=== PATIENT | male | born 1955 | race Caucasian/White ===

== ENCOUNTER 2017-09-24 14:50 | Emergency (ER) | payer OTHER ==
[~2017-09-24] VITALS: Wt 68.0 kg
[2017-09-24] VITALS (16 sets, daily range): BP systolic 94–193; BP diastolic 63–92
[2017-09-24] MEDS ORDERED: BREO ELLIPTA 21 EACH INH (14:58)
[2017-09-24] MEDS ORDERED: STIOLTO RESPIMAT4 GM INH (14:59)
[2017-09-24 15:19] LABS: BASO % 0.7 % (0.0-1.0); EOS % 0.2 % (1.0-4.0); HEMATOCRIT 43.4 % (42.0-52.0); HEMOGLOBIN 14.5 g/dl (14.0-18.0); LYMPH # 0.8 10*3/uL (1.3-4.4); LYMPH % 13.2 % (27.0-41.0); MEAN CELL VOLUME 91.4 fl (80.0-94.0); MEAN CORPUSCULAR HGB 30.5 pg (27.0-31.0); MEAN CORPUSCULAR HGB CONC 33.4 g/dl (33.0-37.0); MEAN PLATELET VOLUME 9.4 fl (9.6-12.3); MONO # 0.7 10*3/uL (0.1-1.0); MONO % 11.7 % (3.0-9.0); NEUT # 4.5 10*3/uL (2.3-7.9); NEUT % 73.9 % (47.0-73.0); PLATELET COUNT AUTOMATED 160 10*3/uL (130-400); RED BLOOD COUNT 4.75 10*6/uL (4.50-5.90); RED CELL DISTRI WIDTH 12.3 % (0-14.5); WHITE BLOOD COUNT 6.1 10*3/uL (4.8-10.8)
[2017-09-24 15:29] LABS: ACT PARTIAL THROMBO TIME 23.6 SECONDS (20.8-31.5)
[2017-09-24 15:38] LABS: ALKALINE PHOSPHATASE 51 U/L (45-117); BUN 7 mg/dl (7-24); CHLORIDE 105 mmol/L (98-107); CREATININE 1.07 mg/dL (0.70-1.30); LIPASE 234 U/L (73-393); POTASSIUM 4.3 mmol/L (3.5-5.1); SGOT/AST 24 IU/L (3-35); SGPT/ALT 35 U/L (12-78); SODIUM 138 mmol/L (136-145); TOTAL PROTEIN 7.1 gm/dL (6.4-8.2)
[2017-09-24 15:45] LABS: TROPONIN I < 0.015 ng/ml (<0.045)
[2017-09-24 17:24] LABS: ABG HCO3 16.6 mmol/l (22-26); ABG O2 SATURATION 98.2 % (95-97)
[2017-09-24 17:29] LABS: ABG BASE EXCESS -21.5 mmol/L (-2.0-2.0)
[2017-09-24 17:34] LABS: ARTERIAL BLOOD GAS PH 6.842 (7.35-7.45)
[2017-09-24 19:02] LABS: ABG BASE EXCESS -5.7 mmol/L (-2.0-2.0); ABG HCO3 22.8 mmol/l (22-26); ARTERIAL BLOOD GAS PCO2 58.8 mmHg (35-45); ARTERIAL BLOOD GAS PH 7.21 (7.35-7.45); ARTERIAL BLOOD GAS PO2 79.9 mmHg (80-90)
== END 2017-09-25 00:37 | disposition short-term general hospital (02) ==
LOC: ED 14:50 → EDHOLD 16:05 → ICCU 16:05 → EDHOLD 16:22 → 5E 16:22 → EDHOLD 17:06 → ICCU 17:46 → ED 09-25 00:37
PROVIDERS: Emergency Medicine
DX: A41.9 Sepsis, unspecified organism (principal); J44.1 Chronic obstructive pulmonary disease with (acute) exacerbation; J18.9 Pneumonia, unspecified organism; J96.00 Acute respiratory failure, unspecified whether with hypoxia or hypercapnia; F17.200 Nicotine dependence, unspecified, uncomplicated; Z79.899 Other long term (current) drug therapy

== ENCOUNTER → 2018-04-21 | Outpatient (CLI) | payer OTHER ==
[~2018-04-21] MED LIST: BREO ELLIPTA 21 EACH INH; STIOLTO RESPIMAT4 GM INH
[2018-04-28 08:35] LABS: ALPHA-1-ANTITRYPSIN, SERUM 58 mg/dL (90-200)
== END | disposition home or self-care (01) ==
LOC: CT 04-07 10:00 → LAB 10:26 → CT 11:00
PROVIDERS: Internal Medicine Critical Care Medicine
DX: J44.9 Chronic obstructive pulmonary disease, unspecified (principal); I25.10 Atherosclerotic heart disease of native coronary artery without angina pectoris

== ENCOUNTER → 2018-09-16 | Outpatient (CLI) | payer OTHER ==
[~2018-09-16] MED LIST changes: +CALCIUM + VITA1 EAC2 PO; +VITAMIN D31000 UNI1 PO
== END | disposition home or self-care (01) ==
LOC: CARD 10:30
DX: Z01.810 Encounter for preprocedural cardiovascular examination (principal); R07.89 Other chest pain; R06.09 Other forms of dyspnea

== ENCOUNTER 2019-07-12 23:06 | Inpatient (IN) | payer OTHER ==
[~2019-07-12] VITALS: Ht 180.3 cm; Wt 64.0 kg
[2019-07-12 23:12] VITALS: BP 142/98
[2019-07-13 00:28] LABS: BASO % 0.3 % (0.0-1.0); EOS # 0.1 10*3/uL (0.0-0.4); EOS % 1.5 % (1.0-4.0); HEMOGLOBIN 13.2 g/dl (14.0-18.0); LYMPH # 2.1 10*3/uL (1.3-4.4); MEAN CELL VOLUME 97.8 fl (80.0-94.0); MEAN CORPUSCULAR HGB 32.3 pg (27.0-31.0); MEAN PLATELET VOLUME 9.8 fl (9.6-12.3); MONO # 0.5 10*3/uL (0.1-1.0); MONO % 7.7 % (3.0-9.0); NEUT # 3.8 10*3/uL (2.3-7.9); NEUT % 58.2 % (47.0-73.0); PLATELET COUNT AUTOMATED 214 10*3/uL (130-400); RED BLOOD COUNT 4.09 10*6/uL (4.50-5.90); RED CELL DISTRI WIDTH 13.8 % (0-14.5); WHITE BLOOD COUNT 6.5 10*3/uL (4.8-10.8)
[2019-07-13 00:54] LABS: ALKALINE PHOSPHATASE 38 U/L (45-117); BUN 14 mg/dl (7-24); CHLORIDE 110 mmol/L (98-107); CREATININE 1.05 mg/dL (0.70-1.30); POTASSIUM 3.7 mmol/L (3.5-5.1); SGOT/AST 27 IU/L (3-35); SGPT/ALT 41 U/L (12-78); SODIUM 141 mmol/L (136-145); TOTAL PROTEIN 7.1 gm/dL (6.4-8.2)
[2019-07-13 00:55] LABS: TROPONIN I 0.016 ng/ml (<0.045)
--- NOTE | 2019-07-13 02:45 | NUR ---
Time: 244 A 64 year old M admitted to 5E under services of DERIC DUFFY DO. Pt. arrived via bed from ER. Chief complaint: SOB 4-5 HOURS. PAGE GILMAN
[2019-07-13 02:48] VITALS: BP 154/88
--- NOTE | 2019-07-13 03:00 | NUR ---
ALERT AND ORIENTED, NO DISTRESS NOTED. RESPIRATIONS EASY. VSS. LUNGS DIMINISHED, CLEAR. PULSE OX 97% RA. ORIENTED TO ROOM, STAFF, CALL SYSTEM. CALL LIGHT WITHIN REACH. NO VOICED COMPLAINTS
[2019-07-13] MEDS ORDERED: BREO ELLIPTA 11 EACH INH (03:03)
[2019-07-13] MEDS ORDERED: SPIRIVA RESPIMAT4 GM INH (03:05)
[2019-07-13] MEDS ORDERED: ASPIRIN ADULT L81 M1 PO (03:05)
[2019-07-13] MEDS ORDERED: LEVOTHYROXINE75 MCG PO (03:25)
[2019-07-13] MEDS ORDERED: CYCLOBENZAPRINE10 MG PO (03:27)
[2019-07-13] MEDS ORDERED: OMEPRAZOLE40 MG PO (03:27)
[2019-07-13] MEDS ORDERED: VENTOLIN 02.5 MG/3 M INH (03:28)
[2019-07-13] MEDS ORDERED: VITAMIN D (03:29)
--- NOTE | 2019-07-13 06:00 | NUR ---
SLEPT SINCE ARRIVING ON FLOOR. RESPIRATIONS EASY. VSS. CALL LIGHT WITHIN REACH. NO VOICED COMPLAINTS
[2019-07-13 06:26] LABS: HEMATOCRIT 40.7 % (42.0-52.0); HEMOGLOBIN 13.6 g/dl (14.0-18.0); MEAN CORPUSCULAR HGB 32.1 pg (27.0-31.0); MEAN CORPUSCULAR HGB CONC 33.4 g/dl (33.0-37.0); MEAN PLATELET VOLUME 10.6 fl (9.6-12.3); PLATELET COUNT AUTOMATED 194 10*3/uL (130-400); RED BLOOD COUNT 4.24 10*6/uL (4.50-5.90); RED CELL DISTRI WIDTH 13.9 % (0-14.5)
[2019-07-13 06:53] LABS: BUN 12 mg/dl (7-24); CHLORIDE 111 mmol/L (98-107); CHOLESTEROL 176 mg/dL (<200); CREATININE 0.94 mg/dL (0.70-1.30); HDL CHOLESTEROL 62 mg/dl (40-60); LDL CHOLESTEROL 102 mg/dL (9-159); PHOSPHOROUS 2.5 mg/dL (2.5-4.9); POTASSIUM 3.8 mmol/L (3.5-5.1); SODIUM 140 mmol/L (136-145); TRIGLYCERIDES 60 mg/dl (<150); VLDL CHOLESTEROL 12 mg/dL (6-40)
[2019-07-13 07:01] LABS: ACT PARTIAL THROMBO TIME 26.1 SECONDS (20.0-32.1)
[2019-07-13 07:02] LABS: FREE T4 0.82 ng/dl (0.76-1.46)
[2019-07-13 07:27] LABS: PLATELET SUFFICIENCY NORMAL (NORMAL); TOTAL CELLS COUNTED 100 #CELLS
[2019-07-13 07:49] LABS: VITAMIN D, 25-HYDROXY 34.7 ng/mL (30-100)
[2019-07-13 08:00] VITALS: BP 126/82; BP 128/83
--- NOTE | 2019-07-13 08:20 | NUR ---
PT RESTING IN BED WITH EYES CLOSED. AWAKENS EASILY. RESP-EASY AND REGULAR. NO C/O AT THIS TIME. CALL LIGHT IN REACH. SEE SHIFT ASSESSMENT.
--- NOTE | 2019-07-13 10:36 | NUR ---
CALLED DR. MOSQUEDA AWARE OF CONSULT.
[2019-07-13 12:00] VITALS: BP 128/83
--- NOTE | 2019-07-13 12:00 | NUR ---
RESTING IN BED. NO C/O AT THIS TIME. CALL LIGHT IN REACH.
--- NOTE | 2019-07-13 14:45 | NUR ---
PT RESTING IN BED. EXPLAINED SPUTUM SAMPLE WE NEED. NO C/O AT THIS TIME. CALL LIGHT IN REACH.
[2019-07-13 16:00] VITALS: BP 118/81
--- NOTE | 2019-07-13 18:00 | NUR ---
PT RESTING IN BED WITH VISITORS AT HIS SIDE. RESP-EASY AND REGULAR. NO C/O AT THIS TIME. CALL LIGHT IN REACH.
[2019-07-13 20:00] VITALS: BP 105/64
[2019-07-14] VITALS: BP 112/65
[2019-07-14 07:06] LABS: HEMATOCRIT 37.5 % (42.0-52.0); HEMOGLOBIN 12.6 g/dl (14.0-18.0); MEAN CELL VOLUME 96.2 fl (80.0-94.0); MEAN CORPUSCULAR HGB 32.3 pg (27.0-31.0); MEAN CORPUSCULAR HGB CONC 33.6 g/dl (33.0-37.0); MEAN PLATELET VOLUME 10.7 fl (9.6-12.3); PLATELET COUNT AUTOMATED 216 10*3/uL (130-400); RED CELL DISTRI WIDTH 14.1 % (0-14.5); WHITE BLOOD COUNT 13.1 10*3/uL (4.8-10.8)
[2019-07-14 07:22] LABS: BUN 16 mg/dl (7-24); CHLORIDE 110 mmol/L (98-107); CREATININE 0.93 mg/dL (0.70-1.30); SODIUM 143 mmol/L (136-145)
[2019-07-14 08:00] VITALS: BP 119/78
[2019-07-14 08:14] LABS: PLATELET SUFFICIENCY NORMAL (NORMAL); TOTAL CELLS COUNTED 100 #CELLS
--- NOTE | 2019-07-14 09:33 | NUR ---
RESTING IN BED. NO VOICED COMPLAINTS. VITALS STABLE.
[2019-07-14 12:00] VITALS: BP 127/80
--- NOTE | 2019-07-14 13:12 | NUR ---
Scow Derrick Operator in to talk to patient. Patient states lives at home with rafaela poon. There are no steps in the home. Physician: cris gregg Pharmacy: [facility] Home health services: none Patient's level of ADLs: INDEPENDENT Patient has working utilities: all working DME: none Follow-up physician's appointment after d/c: will be made by hospitalist nurse director uponn discharge Does patient want to access PORTAL?: no Discharge plan discussed with patient, he states he lives at home with his girlfriend, he states he is independent in adls and ambualtion, he states he will return home when medically stable and denies any home needs. JEFF LR
[2019-07-14 16:00] VITALS: BP 137/83
[2019-07-14 20:00] VITALS: BP 134/83
[2019-07-15] VITALS: BP 129/85
--- NOTE | 2019-07-15 03:16 | NUR ---
24 HR chart check completed.
[2019-07-15 07:03] LABS: BASO % 0.1 % (0.0-1.0); EOS % 0.1 % (1.0-4.0); HEMATOCRIT 39.9 % (42.0-52.0); HEMOGLOBIN 13.3 g/dl (14.0-18.0); LYMPH # 1.3 10*3/uL (1.3-4.4); LYMPH % 9.3 % (27.0-41.0); MEAN CELL VOLUME 97.3 fl (80.0-94.0); MEAN CORPUSCULAR HGB 32.4 pg (27.0-31.0); MEAN CORPUSCULAR HGB CONC 33.3 g/dl (33.0-37.0); MEAN PLATELET VOLUME 10.4 fl (9.6-12.3); MONO # 0.8 10*3/uL (0.1-1.0); MONO % 5.8 % (3.0-9.0); NEUT # 11.7 10*3/uL (2.3-7.9); NEUT % 83.8 % (47.0-73.0); PLATELET COUNT AUTOMATED 251 10*3/uL (130-400); RED CELL DISTRI WIDTH 14.3 % (0-14.5); WHITE BLOOD COUNT 13.9 10*3/uL (4.8-10.8)
[2019-07-15 07:37] LABS: BUN 15 mg/dl (7-24); CHLORIDE 109 mmol/L (98-107); CREATININE 0.94 mg/dL (0.70-1.30); POTASSIUM 4.2 mmol/L (3.5-5.1); SODIUM 140 mmol/L (136-145)
[2019-07-15 08:00] VITALS: BP 141/86
--- NOTE | 2019-07-15 09:00 | NUR ---
case management visits with patient, he will return home when medically stable and denies any home needs
[2019-07-15] MEDS ORDERED: PREDNISONE10 MG PO (10:58)
[2019-07-15] MEDS ORDERED: MUCINEX ER600 MG PO (10:58)
[2019-07-15] MEDS ORDERED: ZITHROMAX500 MG PO (11:00)
--- NOTE | 2019-07-15 12:35 | NUR ---
PATIENT DISCHARGED TO HOME. ALL PERSONAL BELONGINGS SENT WITH PATIENT. IV DISCONTINUED. DISCHARGE INSTRUCTIONS AND PRESCRIPTIONS GIVEN AND REVIEWED WITH PATIENT. PATIENT INSTRUCTED TO FOLLOW UP WITH AND .
--- NOTE | 2019-07-16 13:09 | NUR ---
Faxed discharge clinical to [facility] therapeutic case manager, Tiffany, at [phone]
== END 2019-07-15 13:08 | disposition home or self-care (01) | DRG 140 ==
LOC: ED 23:06 → 5E 07-13 01:37 → EDHOLD 07-13 01:37 → 5E 07-13 02:08
PROVIDERS: Emergency Medicine; Family Medicine; Internal Medicine; ADMIT Internal Medicine
DX: J44.0 Chronic obstructive pulmonary disease with (acute) lower respiratory infection (principal); J44.1 Chronic obstructive pulmonary disease with (acute) exacerbation; J18.9 Pneumonia, unspecified organism; D53.9 Nutritional anemia, unspecified; M81.0 Age-related osteoporosis without current pathological fracture; E55.9 Vitamin D deficiency, unspecified; E03.9 Hypothyroidism, unspecified; J20.9 Acute bronchitis, unspecified; I25.10 Atherosclerotic heart disease of native coronary artery without angina pectoris; F17.210 Nicotine dependence, cigarettes, uncomplicated; K21.9 Gastro-esophageal reflux disease without esophagitis; E87.8 Other disorders of electrolyte and fluid balance, not elsewhere classified; Z71.6 Tobacco abuse counseling; Z88.1 Allergy status to other antibiotic agents; Z87.01 Personal history of pneumonia (recurrent); Z85.850 Personal history of malignant neoplasm of thyroid; Z82.0 Family history of epilepsy and other diseases of the nervous system; Z82.49 Family history of ischemic heart disease and other diseases of the circulatory system; Z80.8 Family history of malignant neoplasm of other organs or systems; Z79.899 Other long term (current) drug therapy; Z79.82 Long term (current) use of aspirin

== ENCOUNTER 2019-08-05 15:40 | Inpatient (IN) | payer OTHER ==
[~2019-08-05] VITALS: Ht 180.3 cm; Wt 62.7 kg
[2019-08-05] VITALS (8 sets, daily range): BP systolic 128–158; BP diastolic 88–99
[~2019-08-05 15:40] MED LIST changes: +ASPIRIN ADULT L81 M1 PO; +BREO ELLIPTA 11 EACH INH; +CYCLOBENZAPRINE10 MG PO; +LEVOTHYROXINE75 MCG PO; +MUCINEX ER600 MG PO; +OMEPRAZOLE40 MG PO; +PREDNISONE10 MG PO; +SPIRIVA RESPIMAT4 GM INH; +VENTOLIN 02.5 MG/3 M INH; +VITAMIN D; +ZITHROMAX500 MG PO
[2019-08-05 16:28] LABS: HEMATOCRIT 43.4 % (42.0-52.0); HEMOGLOBIN 14.4 g/dl (14.0-18.0); MEAN CELL VOLUME 97.5 fl (80.0-94.0); MEAN CORPUSCULAR HGB 32.4 pg (27.0-31.0); MEAN CORPUSCULAR HGB CONC 33.2 g/dl (33.0-37.0); MEAN PLATELET VOLUME 9.5 fl (9.6-12.3); PLATELET COUNT AUTOMATED 176 10*3/uL (130-400); RED BLOOD COUNT 4.45 10*6/uL (4.50-5.90); RED CELL DISTRI WIDTH 14.1 % (0-14.5); WHITE BLOOD COUNT 8.8 10*3/uL (4.8-10.8)
--- NOTE | 2019-08-05 16:34 | NUR ---
In to see pt at this time.Pt and family do not need anything and pt aware urine needed for testing.
[2019-08-05 16:39] LABS: ACT PARTIAL THROMBO TIME 24.9 SECONDS (20.0-32.1)
[2019-08-05 16:45] LABS: ALKALINE PHOSPHATASE 45 U/L (45-117); BUN 9 mg/dl (7-24); CHLORIDE 108 mmol/L (98-107); POTASSIUM 3.9 mmol/L (3.5-5.1); SGOT/AST 22 IU/L (3-35); SGPT/ALT 37 U/L (12-78); SODIUM 139 mmol/L (136-145); TOTAL PROTEIN 7.6 gm/dL (6.4-8.2)
[2019-08-05 16:48] LABS: TROPONIN I < 0.015 ng/ml (<0.045)
[2019-08-05 16:51] LABS: BASOPHILS 1 % (0-1); PLATELET SUFFICIENCY NORMAL (NORMAL); TOTAL CELLS COUNTED 100 #CELLS
--- NOTE | 2019-08-05 17:18 | NUR ---
In to see pt at this time and pt unable to void.
--- NOTE | 2019-08-05 17:48 | NUR ---
In to see pt at this time .Pt states he is hving abdominal cramps and says walking helps.Pt attempting to void at beside at this time.
--- NOTE | 2019-08-05 17:51 | NUR ---
Pt unable to void at this time and sitting at bedside.Pt stated he has had enough water and does not want anything at this time.
--- NOTE | 2019-08-05 18:18 | NUR ---
Pt to ct scan at this time.
--- NOTE | 2019-08-05 18:40 | NUR ---
Pt arrived back from ct.
--- NOTE | 2019-08-05 18:49 | NUR ---
Pt unable to void at this time.
--- NOTE | 2019-08-05 19:20 | NUR ---
Nurse report to Dorian roblero
--- NOTE | 2019-08-05 19:45 | NUR ---
A 64, admitted to , under the services of SRIRAM Simmons DO with a diagnosis of COPD EXACERBATION\. Chief complaint is COPD. Patient arrived via stretcher from ER. Monitor applied. Initial assessment completed. Vital signs taken and recorded. SRIRAM SIMMONS DO notified of admission to the unit. Orders received. See assessment for past medical history, medications and allergies. Patient and/or family oriented to unit. [facility] visitation policy reviewed. Clothing/patient valuable form completed. YANNI MONK
--- NOTE | 2019-08-05 21:01 | NUR ---
DR LOPES CALLED. HOME MED REQ UP TO DATE.
[2019-08-06] VITALS: BP 139/87
--- NOTE | 2019-08-06 00:45 | NUR ---
PATIENT RESTING WITH EYES CLOSED. RESPIRATIONS EASY AND UNLABORED. CALL LIGHT IN REACH. WILL MONITOR.
[2019-08-06 02:07] LABS: BILIRUBIN NEGATIVE (NEGATIVE); BLOOD NEGATIVE (NEGATIVE); CLARITY CLEAR (CLEAR); COLOR YELLOW (YELLOW); GLUCOSE NEGATIVE (NEGATIVE); KETONE TRACE (NEGATIVE); LEUKO ESTERASE NEGATIVE (NEGATIVE); NITRITE NEGATIVE (NEGATIVE); UROBILINOGEN 0.2 E.U./dl (0.2-1.0)
--- NOTE | 2019-08-06 06:22 | NUR ---
DR MOQSUEDA CALLED WITH NEW CONSULT.
[2019-08-06 06:23] LABS: HEMATOCRIT 40.1 % (42.0-52.0); HEMOGLOBIN 13.1 g/dl (14.0-18.0); MEAN CELL VOLUME 96.9 fl (80.0-94.0); MEAN CORPUSCULAR HGB 31.6 pg (27.0-31.0); MEAN CORPUSCULAR HGB CONC 32.7 g/dl (33.0-37.0); MEAN PLATELET VOLUME 10.5 fl (9.6-12.3); PLATELET COUNT AUTOMATED 160 10*3/uL (130-400); RED BLOOD COUNT 4.14 10*6/uL (4.50-5.90)
[2019-08-06 06:40] LABS: ACT PARTIAL THROMBO TIME 26.9 SECONDS (20.0-32.1)
[2019-08-06 06:44] LABS: BUN 8 mg/dl (7-24); CHLORIDE 109 mmol/L (98-107); CREATININE 0.81 mg/dL (0.70-1.30); PHOSPHOROUS 2.4 mg/dL (2.5-4.9); POTASSIUM 4.1 mmol/L (3.5-5.1); SODIUM 139 mmol/L (136-145)
[2019-08-06 07:27] LABS: PLATELET SUFFICIENCY NORMAL (NORMAL); SCHISTOCYTES FEW; TOTAL CELLS COUNTED 100 #CELLS
[2019-08-06 08:00] VITALS: BP 130/84
--- NOTE | 2019-08-06 09:00 | NUR ---
Hot Roll Laminator in to talk to patient. Patient states lives at home with girlfriend. There are no steps in the home. Physician: cris gregg [facility]acy: [facility] Home health services: none Patient's level of ADLs: INDEPENDENT Patient has working utilities: all working DME: nebulizer, no home oxygen Follow-up physician's appointment after d/c: will be made by hospitalist nurse director upon discharge Does patient want to access PORTAL?: no Discharge plan discussed with patient, he lives at home with his girlfriend, he states he is independent in adls and ambulation, he states he will return home when medicallly stable, he has nebulizer but states he hasn't qualified for home oxygen, patient states he will have a bronch on Friday. case management will follow. JEFF LR
[2019-08-06 12:00] VITALS: BP 135/90
--- NOTE | 2019-08-06 15:57 | NUR ---
PT INSTRUCTED ON USE OF FLUTTER VLAVE. PT DEMONSTRATED PROPER TECHNIQUE. PT INSTRUCTED TO USE Q 1-2 HR W/A.
[2019-08-06 16:00] VITALS: BP 134/91
[2019-08-06 20:00] VITALS: BP 127/82
--- NOTE | 2019-08-06 20:50 | NUR ---
PT RESTING IN BED WITH HOB ELEVATED. RESP-EASY AND REGULAR. OXYGEN IN USE. NO C/O AT THIS TIME. TOLERATED ROUTINE MED WITH NO PROBLEM. CALL LIGHT IN REACH.
--- NOTE | 2019-08-06 22:00 | NUR ---
RESTING IN BED WITH EYES CLOSED. RESP-EASY AND REGULAR. CALL LIGHT IN REACH.
[2019-08-07] VITALS: BP 124/91
--- NOTE | 2019-08-07 00:20 | NUR ---
PT RESTING IN BED WITH EYES CLOSED. RESP-EASY AND REGULAR. AWAKENS EASILY. OXYGEN IN USE. CALL LIGHT IN REACH. SEE SHIFT ASSESSMENT.
--- NOTE | 2019-08-07 04:00 | NUR ---
PT RESTING IN BED WAS UP TO BSC. NO C/O AT THIS TIME. OXYGEN IN USE. CALL LIGHT IN REACH.
--- NOTE | 2019-08-07 05:30 | NUR ---
TOLERATED ROUTINE MED WITH NO PROBLEM. RESP-EASY AND REGULAR. NO C/O AT THIS TIME. CALL LIGHT IN REACH.
--- NOTE | 2019-08-07 07:30 | NUR ---
TOOK OVER CARE OF PT. PT SLEEPING IN BED, RESPIRATIONS EASY AND UNLABORED. 3L SUPPLEMENTAL OXYGEN IN TACT VIA NC. NO S/S OF DISTRESS. SAFETY MEASURES IN PLACE. CALL LIGHT IN REACH.
[2019-08-07 08:15] VITALS: BP 132/80
--- NOTE | 2019-08-07 10:00 | NUR ---
AM MEDICATIONS GIVEN AT THIS TIME. ASSESSMENT COMPLETE. PT HAS NO COMPLAINTS. ALL NEEDS ARE MET. CALL LIGHT IN REACH.
[2019-08-07 12:00] VITALS: BP 129/82
[2019-08-07 16:00] VITALS: BP 128/81
--- NOTE | 2019-08-07 17:55 | NUR ---
PT SITTING UP IN BED, EATING DINNER. FAMILY AT BEDSIDE. PT RESPIRATIONS ARE EASY/UNLABORED ON 3L NC. PT DENIES SOB AT REST AND DENIES ANY DISTRESS AT THIS TIME. WILL CONTINUE TO MONITOR. CALL LIGHT IN REACH.
[2019-08-07 20:57] VITALS: BP 152/86
[2019-08-08] VITALS: BP 119/77
--- NOTE | 2019-08-08 01:03 | NUR ---
PT RESTING ON RT SIDE, EASY REG RESPIRATIONS ON 2L NC, NO OVERT DISTRESS. BED IN LOW, LOCKED POS, CALL LIGHT WITHIN REACH.
[2019-08-08 07:10] LABS: HEMATOCRIT 40.6 % (42.0-52.0); LYMPH # 0.6 10*3/uL (1.3-4.4); LYMPH % 7.1 % (27.0-41.0); MEAN CELL VOLUME 97.8 fl (80.0-94.0); MEAN CORPUSCULAR HGB 31.3 pg (27.0-31.0); MEAN PLATELET VOLUME 10.3 fl (9.6-12.3); MONO # 0.5 10*3/uL (0.1-1.0); MONO % 5.9 % (3.0-9.0); NEUT # 6.9 10*3/uL (2.3-7.9); NEUT % 86.6 % (47.0-73.0); PLATELET COUNT AUTOMATED 205 10*3/uL (130-400); RED BLOOD COUNT 4.15 10*6/uL (4.50-5.90); RED CELL DISTRI WIDTH 14.2 % (0-14.5)
[2019-08-08 08:00] VITALS: BP 127/82
--- NOTE | 2019-08-08 08:00 | NUR ---
PATIENT SITTING UP IN BED. NO DISTRESS NOTED. 02 IN USE VIA 2LNC. DENIES ANY SOB AT REST. WILL CONTINUE TO MONITOR. NO VOICED COMPLAINTS. CALL LIGHT WITHIN REACH. VSS.
--- NOTE | 2019-08-08 09:30 | NUR ---
SCHEDULED BLOOD THINNERS ON HOLD PER ORDER FOR SCHEDULED BRONCH ON 08/09/19.
[2019-08-08 12:00] VITALS: BP 128/72
[2019-08-08 16:00] VITALS: BP 151/81
--- NOTE | 2019-08-08 19:30 | NUR ---
PT AWAKE IN BED. A&OX3. RESPIRATIONS EASY. NO S/S OF DISTRESS NOTED. FAMILY AT BEDSIDE. PT DENIES ANY NEEDS. WILL MONITOR. CALL LIGHT IN REACH.
[2019-08-08 20:00] VITALS: BP 137/78
[2019-08-09] VITALS (9 sets, daily range): BP systolic 110–155; BP diastolic 63–102
--- NOTE | 2019-08-09 05:31 | NUR ---
PT ASLEEP IN BED. RESPIRATIONS EASY. NO S/S OF DISTRESS NOTED. WILL MONITOR. CALL LIGHT IN REACH.
[2019-08-09 06:54] LABS: CREATININE 0.81 mg/dL (0.70-1.30)
--- NOTE | 2019-08-09 09:00 | NUR ---
case management visits with patient, he will return home when medically stable and denies any home needs, case management will follow
--- NOTE | 2019-08-09 16:00 | NUR ---
PATIENT REPORTS INABILITY TO VOID COMPLETELY, THAT ITS JUST TRICKLING OUT. CALLED DR. HOLLOWAY, ORDERS TO BLADDER SCAN. BLADDER SCANNED PATIENT WITH RESULT OF 535, REPORTED TO DR. HOLLOWAY, SHA INSTRUCETED TO STRAIGHT CATH, STRAIGHT CATHED AND OBTAINED 300 CC CLEAR URINE, NOTIFIED DR. HOLLOWAY SHE VERSED SHE WILL PUT IN ORDER TO BLADDER SCAN Q SHIFT, AND STRAIGHT CATH IF SCANS 300CC'S
--- NOTE | 2019-08-09 21:22 | NUR ---
IV SITE TO RAC LEAKING/PAINFUL. SITE DISCONTINUED. DSD APPLIED. NEW 22G IV SITE INITIATED L FOREARM PER POLICY. PT TOLERATED WELL. IV TUBING CHANGED AT THIS TIME PER POLICY. IV ABX INFUSION INITIATED PER ORDER. PT BLADDER SCANNED AT THIS TIME PER ORDER FOR 267 CCs. PATIENT DENIES ANY TROUBLE VOIDING. INSTRUCTED TO CALL RN AFTER VOIDING SO THAT WE CAN MEASURE POST-VOID RESIDUAL. PT VERBALIZES UNDERSTANDING. WILL MONITOR. CALL LIGHT IN REACH.
--- NOTE | 2019-08-09 22:36 | NUR ---
PT VOIDED 200 CCs INTO URINAL. STATES HE HAS URINARY URGENCY, BUT DENIES DYSURIA OR HESITANCY AT THIS TIME. BLADDER SCANNED POST-VOID FOR 187 CCs.
[2019-08-10] VITALS: BP 143/90
--- NOTE | 2019-08-10 05:58 | NUR ---
PT BLADDER SCANNED FOR 594. STATES HE HAS TO USE URINAL NOW. WILL RETURN SHORTLY TO ASSESS POST VOID RESIDUAL.
--- NOTE | 2019-08-10 06:08 | NUR ---
PT VOIDED 200 CCs INTO URINAL. BLADDER SCANNED POST VOID FOR 257.
[2019-08-10 06:31] LABS: HEMOGLOBIN 13.8 g/dl (14.0-18.0); LYMPH # 0.9 10*3/uL (1.3-4.4); LYMPH % 13.1 % (27.0-41.0); MEAN CELL VOLUME 96.8 fl (80.0-94.0); MEAN CORPUSCULAR HGB 31.8 pg (27.0-31.0); MEAN CORPUSCULAR HGB CONC 32.9 g/dl (33.0-37.0); MEAN PLATELET VOLUME 10.1 fl (9.6-12.3); MONO # 0.4 10*3/uL (0.1-1.0); MONO % 6.5 % (3.0-9.0); NEUT # 5.4 10*3/uL (2.3-7.9); NEUT % 79.7 % (47.0-73.0); PLATELET COUNT AUTOMATED 224 10*3/uL (130-400); RED BLOOD COUNT 4.34 10*6/uL (4.50-5.90); RED CELL DISTRI WIDTH 14.1 % (0-14.5); WHITE BLOOD COUNT 6.7 10*3/uL (4.8-10.8)
[2019-08-10 06:40] LABS: BUN 12 mg/dl (7-24); CHLORIDE 105 mmol/L (98-107); CREATININE 0.77 mg/dL (0.70-1.30); POTASSIUM 4.3 mmol/L (3.5-5.1); SODIUM 140 mmol/L (136-145)
[2019-08-10 08:00] VITALS: BP 147/93
--- NOTE | 2019-08-10 09:00 | NUR ---
case management visits with patient, he states he will be discharged to home today and denies any home needs
[2019-08-10] MEDS ORDERED: OMNICEF300 MG PO (11:28)
[2019-08-10] MEDS ORDERED: PREDNISONE10 MG PO (11:28)
--- NOTE | 2019-08-10 12:00 | NUR ---
Discharge instructions reviewed with patient/family. Patient receptive and verbalizes understanding. Follow-up care arranged. Written instructions given to patient/family. PATIENT DISCHARGED TO [facility], AMBULATORY FOR TRANSPORT HOME BY PRIVATE VEHICLE WITH FAMILY MEMBER. DANETTE NEUMANN
[2019-08-10 13:04] LABS: ACID FAST SPEC PROCESSING Concentration (.)
== END 2019-08-10 12:00 | disposition home or self-care (01) | DRG 720 ==
LOC: ED 15:40 → EDHOLD 18:37 → 4E 18:37
PROVIDERS: Emergency Medicine; Internal Medicine; Internal Medicine Critical Care Medicine; ADMIT Internal Medicine
PROC: 0BC98ZZ Extirpation of Matter from Lingula Bronchus, Via Natural or Artificial Opening Endoscopic (ICD-10-PCS; principal; 2019-08-09)
PROC: 0BC48ZZ Extirpation of Matter from Right Upper Lobe Bronchus, Via Natural or Artificial Opening Endoscopic (ICD-10-PCS; 2019-08-09)
PROC: 0BC88ZZ Extirpation of Matter from Left Upper Lobe Bronchus, Via Natural or Artificial Opening Endoscopic (ICD-10-PCS; 2019-08-09)
PROC: 0BC58ZZ Extirpation of Matter from Right Middle Lobe Bronchus, Via Natural or Artificial Opening Endoscopic (ICD-10-PCS; 2019-08-09)
PROC: 0BC38ZZ Extirpation of Matter from Right Main Bronchus, Via Natural or Artificial Opening Endoscopic (ICD-10-PCS; 2019-08-09)
PROC: 0BC78ZZ Extirpation of Matter from Left Main Bronchus, Via Natural or Artificial Opening Endoscopic (ICD-10-PCS; 2019-08-09)
PROC: 0BC68ZZ Extirpation of Matter from Right Lower Lobe Bronchus, Via Natural or Artificial Opening Endoscopic (ICD-10-PCS; 2019-08-09)
PROC: 0BCB8ZZ Extirpation of Matter from Left Lower Lobe Bronchus, Via Natural or Artificial Opening Endoscopic (ICD-10-PCS; 2019-08-09)
PROC: 0BC18ZZ Extirpation of Matter from Trachea, Via Natural or Artificial Opening Endoscopic (ICD-10-PCS; 2019-08-09)
DX: A41.9 Sepsis, unspecified organism (principal); J18.9 Pneumonia, unspecified organism; J96.01 Acute respiratory failure with hypoxia; J44.0 Chronic obstructive pulmonary disease with (acute) lower respiratory infection; J44.1 Chronic obstructive pulmonary disease with (acute) exacerbation; E87.8 Other disorders of electrolyte and fluid balance, not elsewhere classified; M81.0 Age-related osteoporosis without current pathological fracture; E88.01 Alpha-1-antitrypsin deficiency; D53.9 Nutritional anemia, unspecified; E55.9 Vitamin D deficiency, unspecified; F17.210 Nicotine dependence, cigarettes, uncomplicated; I25.10 Atherosclerotic heart disease of native coronary artery without angina pectoris; K21.9 Gastro-esophageal reflux disease without esophagitis; G89.29 Other chronic pain; J20.9 Acute bronchitis, unspecified; F12.90 Cannabis use, unspecified, uncomplicated; E89.0 Postprocedural hypothyroidism; D72.810 Lymphocytopenia; D72.9 Disorder of white blood cells, unspecified; Z71.6 Tobacco abuse counseling; Z88.1 Allergy status to other antibiotic agents; Z82.49 Family history of ischemic heart disease and other diseases of the circulatory system; Z82.0 Family history of epilepsy and other diseases of the nervous system; Z83.3 Family history of diabetes mellitus; Z80.8 Family history of malignant neoplasm of other organs or systems; Z85.850 Personal history of malignant neoplasm of thyroid; Z79.82 Long term (current) use of aspirin; Z79.899 Other long term (current) drug therapy

== ENCOUNTER 2019-08-11 07:00 | Inpatient (IN) | payer OTHER, MEDICAID ==
[2019-08-11] VITALS (7 sets, daily range): BP systolic 121–140; BP diastolic 84–93
[~2019-08-11] VITALS: Ht 180.3 cm; Wt 61.4 kg
[~2019-08-11 07:00] MED LIST changes: +OMNICEF300 MG PO
[2019-08-11 07:26] LABS: BASO % 0.1 % (0.0-1.0); EOS % 0.1 % (1.0-4.0); HEMATOCRIT 45.9 % (42.0-52.0); HEMOGLOBIN 15.1 g/dl (14.0-18.0); LYMPH # 2.7 10*3/uL (1.3-4.4); LYMPH % 29.6 % (27.0-41.0); MEAN CORPUSCULAR HGB 31.9 pg (27.0-31.0); MEAN CORPUSCULAR HGB CONC 32.9 g/dl (33.0-37.0); MEAN PLATELET VOLUME 9.4 fl (9.6-12.3); MONO # 0.7 10*3/uL (0.1-1.0); MONO % 8.2 % (3.0-9.0); NEUT # 5.6 10*3/uL (2.3-7.9); NEUT % 61.2 % (47.0-73.0); PLATELET COUNT AUTOMATED 283 10*3/uL (130-400); RED BLOOD COUNT 4.73 10*6/uL (4.50-5.90); RED CELL DISTRI WIDTH 14.1 % (0-14.5); WHITE BLOOD COUNT 9.1 10*3/uL (4.8-10.8)
[2019-08-11 07:36] LABS: ACT PARTIAL THROMBO TIME 23.4 SECONDS (20.0-32.1); INTERNATIONAL NORM RATIO 0.9 (2.0-3.5)
[2019-08-11 07:43] LABS: ALBUMIN 3.6 gm/dl (3.1-4.5); ALKALINE PHOSPHATASE 45 U/L (45-117); BUN 18 mg/dl (7-24); CHLORIDE 103 mmol/L (98-107); CREATININE 0.91 mg/dL (0.70-1.30); SGOT/AST 36 IU/L (3-35); SGPT/ALT 55 U/L (12-78); SODIUM 137 mmol/L (136-145); TOTAL PROTEIN 7.6 gm/dL (6.4-8.2)
[2019-08-11 07:48] LABS: TROPONIN I < 0.015 ng/ml (<0.045)
--- NOTE | 2019-08-11 09:00 | NUR ---
Time: 899 A 64 year old MALE admitted to EDHOLD under services of JESSIKA RIVERA DO. Pt. arrived via bed from ER. Chief complaint: SHORTNESS OF BREATH. APRYL LAURENT
--- NOTE | 2019-08-11 10:34 | NUR ---
patient assessed for home oxygen. at rest spo2:91% heart rate:83 blood pressure:132/92 respiratory rate:18 during ambulation the patient showed extreme shortness of breath, and increased work of bretheing. during ambulation spo2:86-87% heart rate:537=053 blood pressure:141/81 respiratory rate:26
--- NOTE | 2019-08-11 15:00 | NUR ---
PHYSICAL THERAPY Attempted to see pt for evaluation pt just admitted this AM has not eaten and just returned from 02 assessment and "just too tired" subjective information taken and will see pt in the AM for evaluation. Jacqueline Ambrosio PT
[2019-08-11 21:50] LABS: URINE AMPHETAMINES < 1000 (1000ng/ml); URINE BARBITURATES < 200 (200ng/ml); URINE BENZODIAZEPINES < 200 (200ng/ml); URINE CANNABINOIDS (THC) > 50 (50ng/ml); URINE COCAINE < 300 (300ng/ml); URINE METHADONE < 300 (300ng/ml); URINE OPIATES < 300 (300ng/ml); URINE PHENCYCLIDINE < 25 (25ng/ml)
[2019-08-12] VITALS: BP 121/86
[2019-08-12 06:19] LABS: BASO % 0.3 % (0.0-1.0); EOS % 0.4 % (1.0-4.0); HEMATOCRIT 43.1 % (42.0-52.0); HEMOGLOBIN 14.1 g/dl (14.0-18.0); LYMPH # 2.3 10*3/uL (1.3-4.4); LYMPH % 29.5 % (27.0-41.0); MEAN CORPUSCULAR HGB 31.4 pg (27.0-31.0); MEAN CORPUSCULAR HGB CONC 32.7 g/dl (33.0-37.0); MEAN PLATELET VOLUME 9.3 fl (9.6-12.3); MONO # 0.5 10*3/uL (0.1-1.0); MONO % 7.1 % (3.0-9.0); NEUT # 4.7 10*3/uL (2.3-7.9); NEUT % 60.9 % (47.0-73.0); PLATELET COUNT AUTOMATED 301 10*3/uL (130-400); RED BLOOD COUNT 4.49 10*6/uL (4.50-5.90); RED CELL DISTRI WIDTH 14.1 % (0-14.5); WHITE BLOOD COUNT 7.7 10*3/uL (4.8-10.8)
[2019-08-12 06:46] LABS: ALBUMIN 3.1 gm/dl (3.1-4.5); ALKALINE PHOSPHATASE 39 U/L (45-117); BUN 17 mg/dl (7-24); CHLORIDE 103 mmol/L (98-107); CREATININE 0.84 mg/dL (0.70-1.30); PHOSPHOROUS 4.2 mg/dL (2.5-4.9); POTASSIUM 3.9 mmol/L (3.5-5.1); SGOT/AST 24 IU/L (3-35); SGPT/ALT 48 U/L (12-78); SODIUM 138 mmol/L (136-145); TOTAL PROTEIN 6.6 gm/dL (6.4-8.2)
[2019-08-12 08:00] VITALS: BP 126/94
--- NOTE | 2019-08-12 09:00 | NUR ---
Technical Assistant in to talk to patient. Patient states lives at home with girlfriend. There are no steps in the home. Physician: cris gregg/madonna Pharmacy: [facility] Home health services:none Patient's level of ADLs: minimal Patient has working utilities: all working DME: none Follow-up physician's appointment after d/c: will be made by [facility] nurse director upon discharge Does patient want to access PORTAL?: no Discharge plan discussed with patient, he was recently discharged from the hospital and did not qualify for home oxygen at that time, he states he is weak and unable to ambulate on his own. he also stated he qualified for home oxygen while in the ED. he stated he would like to go to a short term intermediate for rehab prior to returning home, educated him that [facility] was the only facility in the area that is in network with his insurance, he was agreeable with that, event planner will make referal to [facility], case management will follow. JEFF LR
--- NOTE | 2019-08-12 09:40 | NUR ---
Occupational Therapy evaluation completed on the 5th floor with full eval to follow. Moderate complexity level. Precautions: decreased O2 sats, IV site, fall risk. Recommend SNF. Work on energy conservation techniques, balance, mobility. Thank you for this referral, Priscilla Frances OTR/L
--- NOTE | 2019-08-12 09:56 | NUR ---
PHYSICAL THERAPY PT evaluation complete, 5E. Patient would benefit from SNF for increased endurance, strength, balance, and stability. Low complexity PT evaluation this date, [id number]. PT POC to address gait, balance, endurance, LE strength. Recommend discharge to SNF for continued therapy services. Thank you. Germania Lacey,PT,DPT.
--- NOTE | 2019-08-12 10:09 | NUR ---
STUMP BLOWER faxed referral info to [facility] for possible SNF placement. STUMP BLOWER will continue to follow and addres any needs as they arise.
[2019-08-12 12:00] VITALS: BP 120/84
--- NOTE | 2019-08-12 13:27 | NUR ---
PHYSICAL THERAPY TREATMENT TIME: 1:15 PM - 1:30 PM 15 MINUTES TOTAL Patient presented to therapy in supine with head of bed elevated and 3 liters of spO2 via nasal canula. Patient reports feeling somewhat better. Patient gives informed consent for treatment. Patient was identified by name and on wristband. Patient completed supine to sitting at EOB with SBA. Patient sat on EOB SBA. Patient performed sit to stand from EOB with SBA. Patient ambulated with Wh Walker and CGA for 50' x 1 , 60' x 1 and 50' x 1 respectively, with 1 moderate LOB on a turn requiring MIN A X 1 to correct. Patient sit <> stand out of low chair with CGA A X 1. Patient was left sitting on EOB with present, call light within reach, and O2 connected to wall outlet with 3 liters of spO2 VIA NASAL CANULA. Patient was 1:1 with this SALES AND MANAGEMENT TRAINEE for 15 minutes total. LIZ BALLARD SALES AND MANAGEMENT TRAINEE
--- NOTE | 2019-08-12 13:30 | NUR ---
OT NOTE Pt was seen this P.M. 1:1 for 15 minute OT session. Upon arrival pt was supine in bed. Pt identified by name and and had no complaints at this time. Pt transferred supine to sit EOB with SBA. Pt presented to therapy with continuous 3L-O2 via NC which he remained on throughout the entire session. Pt's resting SpO2 was 95% and heart rate 105 bpm. While sitting EOB pt donned underpants and gown with SBA. Functional mobility was then completed to the bathroom with CGA and use of w/w for UE support. There pt transferred on/off standard commode with SBA and use of grab bar for UE support. Pt then stood sink side while washing his hands with CGA for safety. Functional mobility was then completed back to the EOB, there he was left sitting upright with call light in hand, tray table in place, and family at bedside. Continue with rec D/C plan to SNF. JAH Ramos
[2019-08-12 16:00] VITALS: BP 123/90
[2019-08-12 20:00] VITALS: BP 151/83
--- NOTE | 2019-08-12 22:48 | NUR ---
PRN RESTORIL GIVEN FOR PT COMPLAINTS OF SLEEPLESSNESS. CALL LIGHT WITHIN REACH, WILL SNEHAL
[2019-08-13] VITALS: BP 145/68
--- NOTE | 2019-08-13 03:11 | NUR ---
24 HR chart check completed.
--- NOTE | 2019-08-13 07:39 | NUR ---
24 HR CHART CHECK COMPLETE.
[2019-08-13 08:00] VITALS: BP 133/86
--- NOTE | 2019-08-13 08:45 | NUR ---
PT IS AWAKE AND SITTING UP IN BED AT THIS TIME. HE IS UTILIZING 3L NC. PT IS SOB WITH MINIMAL EXERTION. NO OTHER C/O VOICED AT THIS TIME. BED IS LOW, CALL LIGHT WITHIN REACH. WILL CONTINUE TO MONITOR.
--- NOTE | 2019-08-13 09:00 | NUR ---
case management visits with patient, he was referred and precert initiated to [facility], no other needs at this time, case management will follow
--- NOTE | 2019-08-13 09:25 | NUR ---
OT NOTE Pt was seen this A.M. 1:1 for 30 minute OT session. Upon arrival pt was supine in bed. Pt identified by name and and had no complaints at this time. Pt presented to therapy with continuous 2L-O2 via NC which he remained on throughout the entire session. Pt's resting SpO2 was 95% and 103 bpm. Pt transferred supine to sit EOB with SBA. While sitting EOB pt donned B slippers with supervision. Sit to stand completed from bed level with SBA and use of w/w for UE support. Functional mobility was then completed to the bathroom with SBA and use of w/w. There he stood sink side while washing his hands, face, and completing oral care. Throughout pt required several standing rest breaks due to quick onset on fatigue and required verbal prompts for correcting his posture and pursed lip breathing technique. Pt presented with good carry over. Functional mobility was then completed back to the EOB for a seated rest break. There pt was provided with and educated on energy conservation and work simplifaication techniques. Pt verbalized understanding, all questions were answered, and presented with fair carry over throughout tasks. Throughout activity pt's SpO2 was 93% and heart rate 105 bpm. Pt was left sitting upright on the EOB with call light in hand, tray table in place, and phone in reach. Continue with rec D/C plan to SNF. FIOR Ramos/Matilde
--- NOTE | 2019-08-13 09:59 | NUR ---
PHYSICAL THERAPY Patient presented to therapy in supine with head of bed elevated and 2 liters of spO2 VIA NASAL CANULA. Patient's O2 sat measured and recorded PRIOR to ambulation and was recorded as 95% and pulse 103. Patient gives informed consent for treatment. Patient was identified by name and on wristband. Patient performed supine to sitting with SBA. Patient sat on EOB SBA. Patient transferred sit to stand from EOB with SBA. Patient ambulated with Walker and CGA-Close Supervision for 60' x 3 with seated rest break every 60' distance. Patient O2 SAT measured at end of ambulation and was recorded as 93% and pulse 107. Patient sit<>stand LOW CHAIR with CGA. Patient was left in bedside chair with call light within reach and connected to wall outlet with 2 liters of spO2. Patient was 1:1 with this OFFSHORE WIND OPERATIONS MANAGER for 22 minutes total. LIZ BALLARD OFFSHORE WIND OPERATIONS MANAGER
[2019-08-13 12:00] VITALS: BP 125/92
--- NOTE | 2019-08-13 12:40 | NUR ---
Precert started on this date.
--- NOTE | 2019-08-13 13:00 | NUR ---
PHYSICAL THERAPY CO-SIGN I approve of the Physical Therapy notes written above. Jacqueline Ambrosio PT
[2019-08-13 16:00] VITALS: BP 137/86
[2019-08-13 20:00] VITALS: BP 134/92
--- NOTE | 2019-08-13 21:00 | NUR ---
PATIENT MEDICATIONS GIVEN ORALLY AT THIS TIME WITHOUT INCIDENT. MEDICATIONS WERE SCANNED PER PROCEDURE AND POLICY BUT COMPUTER LOST WIFI CONNECTION AND MEDICATIONS ARE SHOWING NOT SCANNED AND BEING DOCUMENTED ON. IT AWARE AND LINOTYPIST AWARE.
--- NOTE | 2019-08-13 21:40 | NUR ---
24 HOUR CHART CHECK COMPLETE
[2019-08-14] VITALS: BP 137/93
[2019-08-14 08:00] VITALS: BP 134/95
[2019-08-14 12:00] VITALS: BP 130/91
[2019-08-14 16:00] VITALS: BP 138/88
[2019-08-14 20:00] VITALS: BP 113/53
[2019-08-15] VITALS: BP 125/82
[2019-08-15 08:00] VITALS: BP 140/86
[2019-08-15 12:00] VITALS: BP 135/83
[2019-08-15 16:00] VITALS: BP 115/86
--- NOTE | 2019-08-15 19:41 | NUR ---
48 hour chart check complete
[2019-08-15 20:00] VITALS: BP 126/84
[2019-08-16] VITALS: BP 124/81
[2019-08-16 06:55] LABS: HEMATOCRIT 42.9 % (42.0-52.0); HEMOGLOBIN 13.8 g/dl (14.0-18.0); MEAN CELL VOLUME 98.4 fl (80.0-94.0); MEAN CORPUSCULAR HGB 31.7 pg (27.0-31.0); MEAN CORPUSCULAR HGB CONC 32.2 g/dl (33.0-37.0); MEAN PLATELET VOLUME 9.2 fl (9.6-12.3); PLATELET COUNT AUTOMATED 349 10*3/uL (130-400); RED BLOOD COUNT 4.36 10*6/uL (4.50-5.90); WHITE BLOOD COUNT 17.3 10*3/uL (4.8-10.8)
[2019-08-16 07:19] LABS: CREATININE 1.01 mg/dL (0.70-1.30)
[2019-08-16 07:37] LABS: PLATELET SUFFICIENCY NORMAL (NORMAL); POLYCHROMASIA SLIGHT; TOTAL CELLS COUNTED 100 #CELLS
[2019-08-16 07:38] LABS: SCHISTOCYTES FEW
[2019-08-16 08:00] VITALS: BP 120/84
--- NOTE | 2019-08-16 09:00 | NUR ---
case management visits with patient, educated him that when insurance precert is obtained he will be able to be discharged to [facility]. case management will follow
[2019-08-16] MEDS ORDERED: PREDNISONE10 MG PO (09:46)
--- NOTE | 2019-08-16 11:02 | NUR ---
Patient is discharged to [facility] via [place] at 1300. [place] informaiton faxed, [place], nursing/snack stewardess notified. Family unable to be notified due to not having a number.
--- NOTE | 2019-08-16 11:50 | NUR ---
Discharge instructions reviewed with patient/family. Patient receptive and verbalizes understanding. Follow-up care arranged. Written instructions given to patient/family. CHARLENE ARAUJO.
[2019-08-16 12:00] VITALS: BP 126/79
--- NOTE | 2019-08-16 12:54 | NUR ---
REPORT GIVEN TO NURSE AT [facility].
--- NOTE | 2019-08-16 13:03 | NUR ---
AMBULANCE HERE TO TRANSPORT [facility].
--- NOTE | 2019-08-16 13:10 | NUR ---
Discharge instructions reviewed with FACILITY NURSE. Patient receptive and verbalizes understanding. Follow-up care arranged. Written instructions given to FIELD SUPPORT ENGINEER, IV REMOVED, NO TELEMETRY. DAIN PARKER
--- NOTE | 2019-08-17 07:26 | NUR ---
PHYSICAL THERAPY CO-SIGN I approve of the Physical Therapy notes written above. Jacqueline Ambrosio PT
--- NOTE | 2019-08-17 14:28 | NUR ---
OCCUPATIONAL THERAPY CO-SIGN I approve of the Occupational Therapy notes written above. RY KNIGHT OTR/Matilde
== END 2019-08-16 13:52 | disposition other institution (70) | DRG 189 ==
LOC: ED 07:00 → EDHOLD 07:51 → 5E 08:23 → EDHOLD 08:23 → 5E 09:43
PROVIDERS: Emergency Medicine; Internal Medicine; ADMIT Family Medicine
DX: J96.20 Acute and chronic respiratory failure, unspecified whether with hypoxia or hypercapnia (principal); R65.11 Systemic inflammatory response syndrome (SIRS) of non-infectious origin with acute organ dysfunction; E83.41 Hypermagnesemia; J44.9 Chronic obstructive pulmonary disease, unspecified; D53.9 Nutritional anemia, unspecified; M81.0 Age-related osteoporosis without current pathological fracture; I25.10 Atherosclerotic heart disease of native coronary artery without angina pectoris; E03.9 Hypothyroidism, unspecified; K21.9 Gastro-esophageal reflux disease without esophagitis; G89.29 Other chronic pain; Z88.1 Allergy status to other antibiotic agents; Z83.3 Family history of diabetes mellitus; Z81.8 Family history of other mental and behavioral disorders; Z80.9 Family history of malignant neoplasm, unspecified; Z82.49 Family history of ischemic heart disease and other diseases of the circulatory system; Z79.82 Long term (current) use of aspirin

== ENCOUNTER 2019-12-25 23:07 | Inpatient (IN) | payer MEDICARE ==
[~2019-12-25] VITALS: Ht 152.4 cm; Wt 73.7 kg
[2019-12-25 23:10] VITALS: BP 175/101
[2019-12-25 23:38] VITALS: BP 144/95
[2019-12-25 23:39] LABS: BASO % 0.5 % (0.0-1.0); EOS # 0.1 10*3/uL (0.0-0.4); EOS % 1.3 % (1.0-4.0); HEMATOCRIT 41.4 % (42.0-52.0); LYMPH # 2.1 10*3/uL (1.3-4.4); LYMPH % 26.8 % (27.0-41.0); MEAN CELL VOLUME 91.4 fl (80.0-94.0); MEAN CORPUSCULAR HGB 30.2 pg (27.0-31.0); MEAN CORPUSCULAR HGB CONC 33.1 g/dl (33.0-37.0); MEAN PLATELET VOLUME 9.4 fl (9.6-12.3); MONO # 0.6 10*3/uL (0.1-1.0); MONO % 8.3 % (3.0-9.0); NEUT # 4.9 10*3/uL (2.3-7.9); NEUT % 62.8 % (47.0-73.0); PLATELET COUNT AUTOMATED 293 10*3/uL (130-400); RED BLOOD COUNT 4.53 10*6/uL (4.50-5.90); RED CELL DISTRI WIDTH 12.9 % (0-14.5); WHITE BLOOD COUNT 7.8 10*3/uL (4.8-10.8)
[2019-12-25 23:51] LABS: ACT PARTIAL THROMBO TIME 25.1 SECONDS (20.0-32.1)
[2019-12-25 23:57] LABS: ALBUMIN 3.9 gm/dl (3.1-4.5); ALKALINE PHOSPHATASE 36 U/L (45-117); BUN 15 mg/dl (7-24); CHLORIDE 110 mmol/L (98-107); CREATININE 1.15 mg/dL (0.70-1.30); POTASSIUM 3.7 mmol/L (3.5-5.1); SGOT/AST 21 IU/L (3-35); SGPT/ALT 29 U/L (12-78); SODIUM 140 mmol/L (136-145); TOTAL PROTEIN 7.3 gm/dL (6.4-8.2)
[2019-12-25 23:58] LABS: TROPONIN I < 0.015 ng/ml (<0.045)
[2019-12-26] MEDS ORDERED: BUSPAR15 MG PO (00:29)
[2019-12-26 01:18] VITALS: BP 153/92
[2019-12-26 01:40] VITALS: BP 147/94
[2019-12-26 06:25] LABS: HEMATOCRIT 40.6 % (42.0-52.0); MEAN CELL VOLUME 92.1 fl (80.0-94.0); MEAN CORPUSCULAR HGB 30.6 pg (27.0-31.0); MEAN CORPUSCULAR HGB CONC 33.3 g/dl (33.0-37.0); MEAN PLATELET VOLUME 9.6 fl (9.6-12.3); PLATELET COUNT AUTOMATED 256 10*3/uL (130-400); RED BLOOD COUNT 4.41 10*6/uL (4.50-5.90); RED CELL DISTRI WIDTH 12.9 % (0-14.5); WHITE BLOOD COUNT 8.6 10*3/uL (4.8-10.8)
[2019-12-26 07:01] LABS: BUN 13 mg/dl (7-24); CHLORIDE 111 mmol/L (98-107); CREATININE 1.09 mg/dL (0.70-1.30); POTASSIUM 3.9 mmol/L (3.5-5.1); SODIUM 141 mmol/L (136-145)
[2019-12-26 07:07] LABS: BASOPHILS 1 % (0-1); TOTAL CELLS COUNTED 100 #CELLS
[2019-12-26 07:08] LABS: PLATELET SUFFICIENCY NORMAL (NORMAL)
[2019-12-26 08:00] VITALS: BP 144/83
[2019-12-26 12:00] VITALS: BP 142/80
[2019-12-26 16:00] VITALS: BP 141/68
[2019-12-26 20:00] VITALS: BP 153/95
[2019-12-27] VITALS: BP 160/93
[2019-12-27 04:55] VITALS: BP 154/86
[2019-12-27 08:00] VITALS: BP 160/94
[2019-12-27 12:00] VITALS: BP 159/99
[2019-12-27] MEDS ORDERED: DOXYCYCLINE100 M3 PO (14:31)
[2019-12-27] MEDS ORDERED: PREDNISONE10 MG PO (14:31)
== END 2019-12-27 15:28 | disposition home or self-care (01) | DRG 202 ==
LOC: ED 23:07 → 4E 12-26 00:13 → EDHOLD 12-26 00:13 → 4E 12-26 00:32
PROVIDERS: Emergency Medicine Emergency Medical Services; Internal Medicine; ADMIT Student in an Organized Health Care Education/Training Program
DX: J20.9 Acute bronchitis, unspecified (principal); J44.1 Chronic obstructive pulmonary disease with (acute) exacerbation; J44.0 Chronic obstructive pulmonary disease with (acute) lower respiratory infection; E87.8 Other disorders of electrolyte and fluid balance, not elsewhere classified; R73.9 Hyperglycemia, unspecified; D64.9 Anemia, unspecified; K21.9 Gastro-esophageal reflux disease without esophagitis; E83.51 Hypocalcemia; D72.818 Other decreased white blood cell count; I25.10 Atherosclerotic heart disease of native coronary artery without angina pectoris; G89.29 Other chronic pain; M81.0 Age-related osteoporosis without current pathological fracture; E88.01 Alpha-1-antitrypsin deficiency; E89.0 Postprocedural hypothyroidism; Z85.850 Personal history of malignant neoplasm of thyroid; Z87.891 Personal history of nicotine dependence; Z82.0 Family history of epilepsy and other diseases of the nervous system; Z80.9 Family history of malignant neoplasm, unspecified; Z82.49 Family history of ischemic heart disease and other diseases of the circulatory system; Z79.82 Long term (current) use of aspirin; Z79.899 Other long term (current) drug therapy

== ENCOUNTER 2020-05-17 13:26 | Inpatient (IN) | payer MEDICARE ==
[~2020-05-17] VITALS: Ht 177.8 cm; Wt 69.9 kg
[~2020-05-17 13:26] MED LIST changes: +BUSPAR15 MG PO; +DOXYCYCLINE100 M3 PO
[2020-05-17 13:50] VITALS: BP 140/90
[2020-05-17 14:46] LABS: BASO % 0.1 % (0.0-1.0); HEMATOCRIT 45.7 % (42.0-52.0); LYMPH # 1.3 10*3/uL (1.3-4.4); LYMPH % 11.8 % (27.0-41.0); MEAN CELL VOLUME 90.7 fl (80.0-94.0); MEAN CORPUSCULAR HGB 30.4 pg (27.0-31.0); MEAN CORPUSCULAR HGB CONC 33.5 g/dl (33.0-37.0); MEAN PLATELET VOLUME 9.8 fl (9.6-12.3); MONO % 9.2 % (3.0-9.0); NEUT # 8.4 10*3/uL (2.3-7.9); NEUT % 78.6 % (47.0-73.0); PLATELET COUNT AUTOMATED 247 10*3/uL (130-400); RED BLOOD COUNT 5.04 10*6/uL (4.50-5.90); WHITE BLOOD COUNT 10.7 10*3/uL (4.8-10.8)
[2020-05-17 14:57] LABS: ACT PARTIAL THROMBO TIME 26.8 SECONDS (20.0-32.1)
[2020-05-17 15:01] LABS: ALBUMIN 3.9 gm/dl (3.1-4.5); ALKALINE PHOSPHATASE 47 U/L (45-117); BUN 15 mg/dl (7-24); CHLORIDE 105 mmol/L (98-107); CREATININE 0.74 mg/dL (0.70-1.30); LDH 261 U/L (87-241); POTASSIUM 3.8 mmol/L (3.5-5.1); SGOT/AST 37 IU/L (3-35); SGPT/ALT 24 U/L (12-78); SODIUM 137 mmol/L (136-145); TOTAL PROTEIN 7.5 gm/dL (6.4-8.2)
--- NOTE | 2020-05-17 15:37 | NUR ---
CRITICAL LAB TROPONIN 4.37
--- NOTE | 2020-05-17 15:50 | NUR ---
PT WEIGHS 154.2 LBS PER IN THE BED SCALE
--- NOTE | 2020-05-17 16:14 | NUR ---
PT GIVEN HEPARIN 4245 UNIT BOLUS AND 848 UNITS PER HOUR PER [facility] PROTOC[facility]
[2020-05-17 16:44] VITALS: BP 128/96
--- NOTE | 2020-05-17 16:46 | NUR ---
PT DENIES PAIN OR DISCOMFORT AT THIS TIME
[2020-05-17 17:56] VITALS: BP 148/96
[2020-05-17] MEDS ORDERED: CYCLOBENZAPRINE10 MG PO (21:56)
[2020-05-17 22:14] VITALS: BP 135/99
[2020-05-17 23:36] VITALS: BP 134/90
[2020-05-18] VITALS: BP 140/80
--- NOTE | 2020-05-18 | NUR ---
The assessment has been completed. KIKA RINCON Time: 0000 A 65 year old MALE admitted to under services of PATSY LLOYD DO. Pt. arrived via ambulatory from ER. Chief complaint: CAME IN VIA [facility] FOR C/O CHILLS FOR THE PAST 2 DAYS. C/O DIARRHEA TODAY.C/O CHEST TIGHTNESS FOR THE PAST 2 WEEKS. DENIES COUGH."IM ALWAYS SOB BECAUSE I ONLY HAVE 1/3 LUNG CAPACITY". KIKA RINCON
[2020-05-18] MEDS ORDERED: BREO ELLIPTA 21 EACH INH (00:21)
[2020-05-18] MEDS ORDERED: PROVENTIL HFA6.7 GM INH (00:23)
[2020-05-18] MEDS ORDERED: CALCIUM CARBON600 M5 PO (00:25)
[2020-05-18] MEDS ORDERED: SPIRIVA RESPIMAT4 GM INH (00:40)
--- NOTE | 2020-05-18 05:00 | NUR ---
DR BROOKS ANSWERING SERVICE NOTIFIED OF NEW CONSULT
[2020-05-18 06:39] LABS: BASO % 0.3 % (0.0-1.0); EOS % 0.1 % (1.0-4.0); HEMATOCRIT 47.8 % (42.0-52.0); LYMPH # 1.9 10*3/uL (1.3-4.4); LYMPH % 17.9 % (27.0-41.0); MEAN CELL VOLUME 90.9 fl (80.0-94.0); MEAN CORPUSCULAR HGB 29.8 pg (27.0-31.0); MEAN CORPUSCULAR HGB CONC 32.8 g/dl (33.0-37.0); MEAN PLATELET VOLUME 10.2 fl (9.6-12.3); MONO # 1.1 10*3/uL (0.1-1.0); MONO % 10.2 % (3.0-9.0); NEUT # 7.6 10*3/uL (2.3-7.9); NEUT % 71.1 % (47.0-73.0); PLATELET COUNT AUTOMATED 286 10*3/uL (130-400); RED BLOOD COUNT 5.26 10*6/uL (4.50-5.90); WHITE BLOOD COUNT 10.7 10*3/uL (4.8-10.8)
[2020-05-18 06:45] LABS: BUN 18 mg/dl (7-24); CHLORIDE 106 mmol/L (98-107); CREATININE 0.73 mg/dL (0.70-1.30); POTASSIUM 4.2 mmol/L (3.5-5.1); SODIUM 139 mmol/L (136-145)
--- NOTE | 2020-05-18 06:47 | NUR ---
PT MADE AWARE OF NPO STATUS. VERBALIZED UNDERSTANDING
[2020-05-18 06:49] LABS: CHOLESTEROL 167 mg/dL (<200); HDL CHOLESTEROL 47 mg/dl (40-60); LDL CHOLESTEROL 101 mg/dL (9-159); TRIGLYCERIDES 95 mg/dl (<150); VLDL CHOLESTEROL 19 mg/dL (6-40)
--- NOTE | 2020-05-18 09:05 | NUR ---
Discharge instructions reviewed with patient/family. Patient receptive and verbalizes understanding. Follow-up care arranged. Written instructions given to patient/family. NICANOR NGUYEN
--- NOTE | 2020-05-18 09:10 | NUR ---
Report called to [facility].
== END 2020-05-18 09:05 | disposition short-term general hospital (02) | DRG 282 ==
LOC: ED 13:26 → EDHOLD 15:50 → 4E 22:34
PROVIDERS: Family Medicine; Student in an Organized Health Care Education/Training Program; ADMIT Internal Medicine; ATTEND Internal Medicine
DX: I21.4 Non-ST elevation (NSTEMI) myocardial infarction (principal); J44.9 Chronic obstructive pulmonary disease, unspecified; I25.10 Atherosclerotic heart disease of native coronary artery without angina pectoris; G89.29 Other chronic pain; M81.0 Age-related osteoporosis without current pathological fracture; R74.01 Elevation of levels of liver transaminase levels; E83.41 Hypermagnesemia; K21.9 Gastro-esophageal reflux disease without esophagitis; Z88.1 Allergy status to other antibiotic agents; Z87.891 Personal history of nicotine dependence; Z82.49 Family history of ischemic heart disease and other diseases of the circulatory system; Z81.8 Family history of other mental and behavioral disorders; Z79.899 Other long term (current) drug therapy; E03.9 Hypothyroidism, unspecified

== ENCOUNTER 2021-09-19 04:52 | Observation (INO) | payer MEDICARE ==
[~2021-09-19] VITALS: Ht 177.8 cm; Wt 69.5 kg
[2021-09-19] VITALS (8 sets, daily range): BP systolic 110–150; BP diastolic 64–99
[~2021-09-19 04:52] MED LIST changes: +AZITHROMYCIN500 M2 PO; +BRILINTA90 M1 PO; +CALCIUM CARBON600 M5 PO; +DOXYCYCLINE HY100 M3 PO; +Ipratropium Brom3 ML INH; +LIPITOR40 MG PO; +PROLASTIN C1000 MG IV; +PROVENTIL HFA6.7 GM INH; +TOPROL XL25 MG PO
[2021-09-19 05:53] LABS: ALKALINE PHOSPHATASE 52 U/L (45-117); BUN 20 mg/dl (7-24); CHLORIDE 110 mmol/L (98-107); CREATININE 1.09 mg/dL (0.70-1.30); POTASSIUM 3.7 mmol/L (3.5-5.1); SGOT/AST 21 IU/L (3-35); SGPT/ALT 29 U/L (12-78); SODIUM 142 mmol/L (136-145); TOTAL PROTEIN 6.8 gm/dL (6.4-8.2)
[2021-09-19 06:09] LABS: BASO % 0.4 % (0.0-1.0); EOS # 0.1 10*3/uL (0.0-0.4); EOS % 1.6 % (1.0-4.0); HEMATOCRIT 38.8 % (42.0-52.0); LYMPH # 1.7 10*3/uL (1.3-4.4); LYMPH % 22.1 % (27.0-41.0); MEAN CELL VOLUME 93.5 fl (80.0-94.0); MEAN CORPUSCULAR HGB 30.8 pg (27.0-31.0); MEAN PLATELET VOLUME 9.7 fl (9.6-12.3); MONO # 0.7 10*3/uL (0.1-1.0); MONO % 9.3 % (3.0-9.0); NEUT # 5.1 10*3/uL (2.3-7.9); NEUT % 65.8 % (47.0-73.0); PLATELET COUNT AUTOMATED 302 10*3/uL (130-400); RED BLOOD COUNT 4.15 10*6/uL (4.50-5.90); RED CELL DISTRI WIDTH 13.9 % (0-14.5); WHITE BLOOD COUNT 7.7 10*3/uL (4.8-10.8)
[2021-09-19 06:43] LABS: ACT PARTIAL THROMBO TIME 22.8 SECONDS (20.0-32.1)
[2021-09-19 09:03] LABS: ABG BASE EXCESS -0.9 mmol/L (-2.0-2.0); ARTERIAL BLOOD GAS PH 7.435 (7.35-7.45); ARTERIAL BLOOD GAS PO2 87.4 (80-90)
[2021-09-20] VITALS: BP 124/85
[2021-09-20 06:00] LABS: ALKALINE PHOSPHATASE 44 U/L (45-117); BUN 18 mg/dl (7-24); CHLORIDE 110 mmol/L (98-107); CREATININE 0.88 mg/dL (0.70-1.30); SGOT/AST 12 IU/L (3-35); SGPT/ALT 23 U/L (12-78); SODIUM 141 mmol/L (136-145); TOTAL PROTEIN 6.5 gm/dL (6.4-8.2)
[2021-09-20 06:01] LABS: HEMATOCRIT 35.7 % (42.0-52.0); LYMPH # 0.7 10*3/uL (1.3-4.4); LYMPH % 6.8 % (27.0-41.0); MEAN CELL VOLUME 91.3 fl (80.0-94.0); MEAN CORPUSCULAR HGB 30.9 pg (27.0-31.0); MEAN CORPUSCULAR HGB CONC 33.9 g/dl (33.0-37.0); MEAN PLATELET VOLUME 9.9 fl (9.6-12.3); MONO # 0.3 10*3/uL (0.1-1.0); NEUT # 9.4 10*3/uL (2.3-7.9); NEUT % 89.6 % (47.0-73.0); PLATELET COUNT AUTOMATED 306 10*3/uL (130-400); RED BLOOD COUNT 3.91 10*6/uL (4.50-5.90); WHITE BLOOD COUNT 10.5 10*3/uL (4.8-10.8)
[2021-09-20 08:00] VITALS: BP 146/87
[2021-09-20] MEDS ORDERED: PREDNISONE10 MG PO (10:39)
[2021-09-20] MEDS ORDERED: MUCINEX1200 M1 PO (10:39)
[2021-09-20] MEDS ORDERED: ZITHROMAX250 MG PO (10:39)
== END 2021-09-20 13:30 | disposition home or self-care (01) ==
LOC: ED 04:52 → EDHOLD 07:02 → 5E 07:02 → EDHOLD 08:40 → 5E 16:45
PROVIDERS: Emergency Medicine; Registered Nurse; ADMIT Internal Medicine; ATTEND Internal Medicine
DX: J44.1 Chronic obstructive pulmonary disease with (acute) exacerbation (principal); J96.01 Acute respiratory failure with hypoxia; Z20.822 Contact with and (suspected) exposure to COVID-19; I50.22 Chronic systolic (congestive) heart failure; E88.01 Alpha-1-antitrypsin deficiency; I25.10 Atherosclerotic heart disease of native coronary artery without angina pectoris; E03.9 Hypothyroidism, unspecified; K21.9 Gastro-esophageal reflux disease without esophagitis; F17.210 Nicotine dependence, cigarettes, uncomplicated; Z79.82 Long term (current) use of aspirin; Z79.899 Other long term (current) drug therapy

== ENCOUNTER → 2022-01-09 | Outpatient (CLI) | payer MEDICARE ==
[~2022-01-09] MED LIST changes: +MUCINEX1200 M1 PO; +ZITHROMAX250 MG PO
[2022-01-09 12:04] LABS: BILIRUBIN Negative (Negative); BLOOD Negative (Negative); CLARITY Clear (Clear); COLOR Yellow (Yellow); GLUCOSE Negative (Negative); KETONE Negative (Negative); LEUKO ESTERASE Negative (Negative); NITRITE Negative (Negative); SPECIFIC GRAVITY <= 1.005 (1.001-1.030); UROBILINOGEN 0.2 E.U./dl (0.0-1.0)
[2022-01-09 12:05] LABS: BASO % 0.5 % (0.0-1.0); EOS # 0.1 10*3/uL (0.0-0.4); EOS % 1.4 % (1.0-4.0); LYMPH # 1.3 10*3/uL (1.3-4.4); LYMPH % 17.3 % (27.0-41.0); MEAN CELL VOLUME 88.9 fl (80.0-94.0); MEAN CORPUSCULAR HGB 28.7 pg (27.0-31.0); MEAN CORPUSCULAR HGB CONC 32.3 g/dl (33.0-37.0); MEAN PLATELET VOLUME 10.3 fl (9.6-12.3); MONO # 0.7 10*3/uL (0.1-1.0); MONO % 8.4 % (3.0-9.0); NEUT # 5.6 10*3/uL (2.3-7.9); NEUT % 72.1 % (47.0-73.0); PLATELET COUNT AUTOMATED 351 10*3/uL (130-400); RED CELL DISTRI WIDTH 13.8 % (0-14.5); RETICULOCYTE % 1.41 % (0.50-2.50); WHITE BLOOD COUNT 7.7 10*3/uL (4.8-10.8)
[2022-01-09 12:22] LABS: ALKALINE PHOSPHATASE 49 U/L (45-117); BUN 19 mg/dl (7-24); CHLORIDE 106 mmol/L (98-107); CHOLESTEROL 146 mg/dL (<200); GAMMA GLUTAMYL TRANSPEPTIDASE 32 U/L (15-85); LDL CHOLESTEROL 61 mg/dL (9-159); POTASSIUM 3.8 mmol/L (3.5-5.1); SODIUM 144 mmol/L (136-145); TOTAL PROTEIN 7.6 gm/dL (6.4-8.2); TRIGLYCERIDES 93 mg/dl (<150)
[2022-01-09 12:28] LABS: CREATININE 1.35 mg/dL (0.70-1.30); IRON 54 ug/dL (65-175); SGOT/AST 28 IU/L (3-35); SGPT/ALT 29 U/L (12-78); T3 UPTAKE 36 % (31-39); VITAMIN D, 25-HYDROXY 35.2 ng/mL (30-100)
[2022-01-09 12:29] LABS: FERRITIN 11.2 ng/mL (22.0-322.0)
[2022-01-09 13:49] LABS: EPITHELIAL CELLS 0-2
== END | disposition home or self-care (01) ==
LOC: LAB 10:17
PROVIDERS: ATTEND Family Medicine
DX: E78.5 Hyperlipidemia, unspecified (principal); E55.9 Vitamin D deficiency, unspecified; R79.89 Other specified abnormal findings of blood chemistry; R53.83 Other fatigue; R74.8 Abnormal levels of other serum enzymes; Z12.5 Encounter for screening for malignant neoplasm of prostate

== ENCOUNTER → 2022-03-18 | Outpatient (CLI) | payer MEDICARE | END | disposition home or self-care (01) | LOC: US 13:00 | PROVIDERS: ATTEND Internal Medicine Nephrology | DX: N17.9 Acute kidney failure, unspecified (principal) ==

== ENCOUNTER 2022-06-06 13:14 | Emergency (ER) | payer MEDICARE ==
[~2022-06-06] VITALS: Ht 177.8 cm; Wt 76.7 kg
[2022-06-06 16:28] LABS: BASO % 0.5 % (0.0-1.0); EOS % 0.5 % (1.0-4.0); HEMATOCRIT 37.8 % (42.0-52.0); MEAN CELL VOLUME 87.3 fl (80.0-94.0); MEAN CORPUSCULAR HGB 27.3 pg (27.0-31.0); MEAN CORPUSCULAR HGB CONC 31.2 g/dl (33.0-37.0); MEAN PLATELET VOLUME 8.9 fl (9.6-12.3); MONO # 0.4 10*3/uL (0.1-1.0); MONO % 4.5 % (3.0-9.0); NEUT # 7.1 10*3/uL (2.3-7.9); PLATELET COUNT AUTOMATED 427 10*3/uL (130-400); RED BLOOD COUNT 4.33 10*6/uL (4.50-5.90); RED CELL DISTRI WIDTH 13.7 % (0-14.5); WHITE BLOOD COUNT 8.6 10*3/uL (4.8-10.8)
[2022-06-06 16:44] LABS: ALKALINE PHOSPHATASE 81 U/L (46-116); BUN 16 mg/dl (9-23); CHLORIDE 103 mmol/L (98-107); CREATININE 1.03 mg/dL (0.70-1.30); POTASSIUM 4.6 mmol/L (3.4-5.1); SGPT/ALT 23 U/L (10-49)
== END 2022-06-06 17:53 | disposition home or self-care (01) ==
LOC: ED 13:14
PROVIDERS: Nurse Practitioner
DX: R23.0 Cyanosis (principal); F17.210 Nicotine dependence, cigarettes, uncomplicated; J44.9 Chronic obstructive pulmonary disease, unspecified; Z88.1 Allergy status to other antibiotic agents; Z79.899 Other long term (current) drug therapy; Z79.82 Long term (current) use of aspirin; Z90.89 Acquired absence of other organs; Z98.890 Other specified postprocedural states

== ENCOUNTER 2022-10-18 15:19 | Emergency (ER) | payer OTHER, MEDICAID ==
[~2022-10-18] VITALS: Wt 81.6 kg
[2022-10-18] MEDS ORDERED: POTASSIUM99 M7 PO (15:34)
[2022-10-18] MEDS ORDERED: LASIX20 MG PO (15:34)
[2022-10-18 15:55] LABS: BASO # 0.1 10*3/uL (0.0-0.1); BASO % 0.6 % (0.0-1.0); EOS # 0.2 10*3/uL (0.0-0.4); EOS % 2.1 % (1.0-4.0); HEMATOCRIT 42.4 % (42.0-52.0); LYMPH # 0.9 10*3/uL (1.3-4.4); LYMPH % 10.1 % (27.0-41.0); MEAN CELL VOLUME 87.4 fl (80.0-94.0); MEAN CORPUSCULAR HGB 27.6 pg (27.0-31.0); MEAN CORPUSCULAR HGB CONC 31.6 g/dl (33.0-37.0); MEAN PLATELET VOLUME 9.5 fl (9.6-12.3); MONO # 0.5 10*3/uL (0.1-1.0); MONO % 6.3 % (3.0-9.0); NEUT # 6.8 10*3/uL (2.3-7.9); NEUT % 80.5 % (47.0-73.0); PLATELET COUNT AUTOMATED 367 10*3/uL (130-400); RED BLOOD COUNT 4.85 10*6/uL (4.50-5.90); RED CELL DISTRI WIDTH 13.9 % (0-14.5); WHITE BLOOD COUNT 8.4 10*3/uL (4.8-10.8)
[2022-10-18 16:15] LABS: ACT PARTIAL THROMBO TIME 26.4 SECONDS (20.0-32.1); INTERNATIONAL NORM RATIO 1.2 (2.0-3.5)
[2022-10-18 16:24] LABS: ALKALINE PHOSPHATASE 81 U/L (46-116); BUN 15 mg/dl (9-23); CHLORIDE 101 mmol/L (98-107); POTASSIUM 4.4 mmol/L (3.4-5.1); SGPT/ALT 21 U/L (10-49); TOTAL PROTEIN 7.6 gm/dL (6.0-8.0)
[2022-10-18] MEDS ORDERED: PREDNISONE10 M1 PO (18:22)
== END 2022-10-18 18:20 | disposition home or self-care (01) ==
LOC: ED 15:19
PROVIDERS: Emergency Medicine
DX: J44.9 Chronic obstructive pulmonary disease, unspecified (principal); I25.10 Atherosclerotic heart disease of native coronary artery without angina pectoris; I25.2 Old myocardial infarction; Z88.8 Allergy status to other drugs, medicaments and biological substances; Z98.890 Other specified postprocedural states; F17.210 Nicotine dependence, cigarettes, uncomplicated; F12.90 Cannabis use, unspecified, uncomplicated

== ENCOUNTER → 2022-10-22 | Outpatient (CLI) | payer OTHER, MEDICAID ==
[~2022-10-22] MED LIST changes: +K-TAB20 MEQ PO; +LASIX20 MG PO; +POTASSIUM99 M7 PO; +PREDNISONE10 M1 PO
== END | disposition home or self-care (01) ==
LOC: CARD 00:14
PROVIDERS: ATTEND Internal Medicine Cardiovascular Disease
DX: R94.39 Abnormal result of other cardiovascular function study (principal); R07.89 Other chest pain; R06.02 Shortness of breath; R06.09 Other forms of dyspnea

== ENCOUNTER → 2023-01-22 | Outpatient (CLI) | payer OTHER, MEDICAID ==
[2023-01-22 14:01] LABS: BASO % 0.5 % (0.0-1.0); EOS # 0.1 10*3/uL (0.0-0.4); HEMATOCRIT 42.7 % (42.0-52.0); LYMPH # 1.5 10*3/uL (1.3-4.4); LYMPH % 18.4 % (27.0-41.0); MEAN CORPUSCULAR HGB 27.9 pg (27.0-31.0); MEAN CORPUSCULAR HGB CONC 31.4 g/dl (33.0-37.0); MONO # 0.8 10*3/uL (0.1-1.0); MONO % 9.4 % (3.0-9.0); NEUT # 5.8 10*3/uL (2.3-7.9); NEUT % 69.4 % (47.0-73.0); PLATELET COUNT AUTOMATED 313 10*3/uL (130-400); RED CELL DISTRI WIDTH 14.6 % (0-14.5); RETICULOCYTE % 1.44 % (0.50-2.50); WHITE BLOOD COUNT 8.3 10*3/uL (4.8-10.8)
[2023-01-22 14:05] LABS: BILIRUBIN Negative (Negative); BLOOD Negative (Negative); CLARITY Clear (Clear); COLOR Yellow (Yellow); GLUCOSE Negative (Negative); KETONE Negative (Negative); LEUKO ESTERASE Trace (Negative); NITRITE Negative (Negative); PH 5.5 (4.5-8.0)
[2023-01-22 14:18] LABS: BACTERIA TRACE; EPITHELIAL CELLS 0-2; RBC 0-2 rbc/hpf (0-2)
[2023-01-22 14:31] LABS: ALKALINE PHOSPHATASE 63 U/L (46-116); BUN 15 mg/dl (9-23); CHLORIDE 102 mmol/L (98-107); CHOLESTEROL 124 mg/dL (<200); GAMMA GLUTAMYL TRANSPEPTIDASE 32 U/L (0-73); LDL CHOLESTEROL 61 mg/dL (9-159); POTASSIUM 4.2 mmol/L (3.4-5.1); SGPT/ALT 30 U/L (10-49); T3 UPTAKE 25.1 % (22.4-36.7); THYROXINE (T4) TOTAL 14.2 ug/dl (4.5-10.9); TOTAL PROTEIN 7.8 gm/dL (6.0-8.0); TRIGLYCERIDES 72 mg/dl (<150)
== END | disposition home or self-care (01) ==
LOC: LAB 13:22
PROVIDERS: ATTEND Family Medicine
DX: E55.9 Vitamin D deficiency, unspecified (principal); R79.89 Other specified abnormal findings of blood chemistry; R53.83 Other fatigue

== ENCOUNTER → 2023-02-12 | Outpatient (CLI) | payer OTHER | END | disposition home or self-care (01) | LOC: US 02-07 13:00 | PROVIDERS: ATTEND Family Medicine | DX: I73.9 Peripheral vascular disease, unspecified (principal) ==